=== PATIENT | male | born 1965 | race Caucasian/White ===

== ENCOUNTER → 2016-08-17 | Outpatient (CLI) | payer OTHER ==
[~2016-08-17] MED LIST: MULTIVITAMINS1 EAC2 ORAL; VITAMIN C500 M1 ORAL
--- NOTE | 2016-08-18 10:34 | Diagnostic Imaging Report ---
Indication: Cough Comparison: None 2 views of the chest obtained. Findings: Cardiomediastinal silhouette and pulmonary vascularity are within normal limits for age. The diaphragmatic contour is smooth and costophrenic angles are sharp. No pleural effusions are identified. The bones are unremarkable. Impression: No acute disease
== END | disposition home or self-care (01) ==
LOC: RAD 17:07
DX: R05 Cough (principal)
CPT/HCPCS: 71020

== ENCOUNTER 2018-08-23 16:15 | Outpatient (CLI) | payer OTHER ==
--- NOTE | 2018-08-23 16:58 | Diagnostic Imaging Report ---
Indication: Cough Comparison: 08/17/2018 2 views of the chest obtained. Findings: Cardiomediastinal silhouette and pulmonary vascularity are within normal limits for age. The diaphragmatic contour is smooth and costophrenic angles are sharp. No pleural effusions are identified. The bones are unremarkable. Impression: No acute disease
== END 2018-08-23 18:15 | disposition home or self-care (01) ==
LOC: RAD 16:15
DX: Z00.01 Encounter for general adult medical examination with abnormal findings (principal); R05 Cough
CPT/HCPCS: 71046